=== PATIENT | female | born 1990 | race Caucasian/White ===

== ENCOUNTER 2018-10-13 13:50 | Emergency (ER) | payer BC, OTHER ==
--- NOTE | 2018-10-13 14:16 | PDOC ---
Attending Attestation - Resident Resident Name: Terri Olvera - ED Attending Attestation I have performed the following: I have examined & evaluated the patient, The case was reviewed & discussed with the resident, I agree w/resident's findings & plan, Exceptions are as noted - HPI HPI: 10/13/18 14:41 28yo female with cough and subjective fevers since monday. Seen at urgent care on and started on amoxicillin - which she took the first dose on monday and albuterol which she didn't use until today. Pt states lower anterior rib cp when she coughs. States some abd cramping, but no n/v/d. No sore throat. No rhinorrhea. States cough is productive of yellow sputum. No dysuria. No rashes. No other complaints. Pt did not check her temp this AM, but states she felt hot. 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 No other complaints. - Physicial Exam PE: 10/13/18 14:44 Gen: aaox3, nad heent: posterior pharynx clear, no rhinorrhea, supple neck, no LAD heart: +s1s2 reg lungs: cta b/l abd: soft, nt/nd +bs ext: no c/c/e - Medical Decision Making 10/13/18 14:15 I, Dr. Padmini Jerome, DO, attest that this document has been prepared under my direction and personally reviewed by me in its entirety. I further attest, that it accurately reflects all work, treatment, procedures and medical decision -making performed by me. 10/13/18 14:44 a/p: 28yo female with a cough x 4 days -will repeat cxr -flu swab was negative at Urgent Care -pt is nontoxic in appearance -no abd ttp -no fever in the ED -will give motrin -will rx a space chamber for her albuterol pump as pt expressed difficulty in timing with breathing and the pump 10/13/18 15:18 pt ambulatory in the ED with a steady gait 10/13/18 15:56 cxr clear pt ambulatory in the ED without difficulty
--- NOTE | 2018-10-13 14:21 | PDOC ---
History of Present Illness - History of Present Illness Initial Comments: 10/13/18 14:10 28 year old with no past medical history presents with nonproductive cough ongoing for 1 week. She went to urgent care 4 days ago where they gave her amoxicillin for bronchitis and albuterol neb which she started today. At urgent care the patient had a cxr that was negative and flu swab that was negative. <Terri Olvera - Last Filed: 10/13/18 16:06> <Padmini Jerome - Last Filed: 10/13/18 16:29> - General Chief Complaint: Cold Symptoms Stated Complaint: COUGH Time Seen by Provider: 10/13/18 14:01 Past History - Suicide/Smoking/Psychosocial Hx Smoking Status: Yes Smoking History: Current every day smoker Number of Cigarettes Smoked Daily: 10 <Terri Olvera - Last Filed: 10/13/18 16:06> <Padmini Jerome - Last Filed: 10/13/18 16:29> - Past Medical History Allergies/Adverse Reactions: Allergies Allergy/AdvReac Type Severity Reaction Status Date / Time No Known Allergies Allergy Verified 10/13/18 13:50 Home Medications: Ambulatory Orders Inhaler, Assist Devices [Space Chamber Plus] 1 each MC ONCE #1 spacer 10/13/18 Norethindrone-E.estradiol-Iron [Junel Fe 1 mg-20 Mcg Tablet] 1 each PO DAILY *Physical Exam - Vital Signs Last Vital Signs Temp Pulse Resp BP Pulse Ox 98.7 F 101 H 20 143/88 98 10/13/18 13:50 10/13/18 13:50 10/13/18 13:50 10/13/18 13:50 10/13/18 13:50 <Padmini Jerome - Last Filed: 10/13/18 16:29> Moderate Sedation - Procedure Monitoring Vital Signs: Procedure Monitoring Vital Signs Temperature 98.7 F 10/13/18 13:50 Pulse Rate 101 H 10/13/18 13:50 Respiratory Rate 20 10/13/18 13:50 Blood Pressure 143/88 10/13/18 13:50 O2 Sat by Pulse Oximetry (%) 98 10/13/18 13:50 <Padmini Jerome - Last Filed: 10/13/18 16:29> ED Treatment Course - ADDITIONAL ORDERS Additional order review: Laboratory Results 10/13/18 14:56 Urine HCG, Qual Negative - Medications Given in the ED: ED Medications Discontinued Medications Generic Name Dose Route Start Last Admin Trade Name Perez PRN Reason Stop Dose Admin Ibuprofen 600 mg 10/13/18 14:46 10/13/18 15:53 Motrin - PO 10/13/18 14:47 600 mg ONCE ONE Administration <Padmini Jerome - Last Filed: 10/13/18 16:29> Medical Decision Making - Medical Decision Making 10/13/18 16:00 consider bronchitis vs pna cxr: unremarkable stable for discharge 10/13/18 16:06 99 on RA, 106/78, hr 75 <Terri Olvera - Last Filed: 10/13/18 16:06> *DC/Admit/Observation/Transfer - Discharge Dispostion Decision to Admit order: No <Terri Olvera - Last Filed: 10/13/18 16:06> <Padmini Jerome - Last Filed: 10/13/18 16:29> Diagnosis at time of Disposition: URI (upper respiratory infection) - Discharge Dispostion Disposition: HOME Condition at time of disposition: Stable - Prescriptions Prescriptions: Inhaler, Assist Devices [Space Chamber Plus] 1 each MC ONCE #1 spacer - Patient Instructions Printed Discharge Instructions: DI for Cough -- Adult Additional Instructions: You were seen in the ED for complaints of cough. In the ED you were evaluated with imaging. Your results were unremarkable. There does not appear to be an acute need for immediate hospitalization. You are advised to follow up with your Primary Care Physician within 1 week. Your albuterol spacer for your inhaler was sent to your pharmacy. Return to the ED immediately if you experience worsening cough, coughing blood, chest pain, severe shortness of breath, fever, lightheadedness or palpitations.
[2018-10-13 14:28] VITALS: BP 143/88; PULSE 101; TEMP 98.7; BMI 21.8
[2018-10-13] MEDS ORDERED: IBUPROFEN 600 MG TABLET (FP) PO ONE ×2 (14:46→15:51)
[2018-10-13] MEDS ORDERED: ALBUTEROL SO4 2.5/IPRATROPIUM 0.5 INH SOL 3 ML VIAL.NEB. NEB ONE (14:54)
== END 2018-10-13 16:29 | disposition home or self-care (01) ==
LOC: FER 13:50
DX: J06.9 Acute upper respiratory infection, unspecified (principal); F17.210 Nicotine dependence, cigarettes, uncomplicated
CPT/HCPCS: 71046-TC-FY; 84703; 99281-25

== ENCOUNTER 2022-07-12 20:35 | Emergency (ER) | payer BC, OTHER ==
[2022-07-12 20:44] VITALS: BP 124/77; TEMP 99; BMI 24.5
[2022-07-12] MEDS ORDERED: ACETAMINOPHEN 500 MG TABLET (FP) PO ONE (20:58)
[2022-07-12] MEDS ORDERED: ACETAMINOPHEN 325 MG TABLET (FP) ONE (21:27)
[2022-07-12 21:46] LABS: BASO % 0.6 % (0-2.0); EOS % 0.3 % (0-4.5); HEMOGLOBIN 13.6 GM/dL (10.7-15.3); LYMPH % 12.7 % (8-40); MCH 31.7 pg (25.7-33.7); MCHC 34.1 g/dl (32.0-36.0); MEAN CELL VOLUME 93.1 fl (80-96); MEAN PLT VOLUME 7.3 fl (7.5-11.1); MONO % 5.1 % (3.8-10.2); NEUT % 81.3 % (42.8-82.8); PLATELET COUNT 316 10^3/uL (134-434); RDW 12.7 % (11.6-15.6); WHITE BLOOD COUNT 9.2 K/mm3 (4.0-10.0)
[2022-07-12 21:59] LABS: INR 1.1 (0.83-1.09); PROTHROMBIN TIME (PATIENT) 12.7 SEC (9.7-13.0)
[2022-07-12 22:01] LABS: CHLORIDE 103 mmol/L (98-107); SODIUM 136 mmol/L (136-145)
[2022-07-12 22:02] LABS: ACTIVATED PTT 29.6 SECONDS (25.2-36.5)
[2022-07-12 22:04] LABS: CALCIUM 9.5 mg/dL (8.5-10.1)
[2022-07-12 22:05] LABS: ALBUMIN 4.3 g/dl (3.4-5.0); ANION GAP 9 MMOL/L (8-16); BLOOD UREA NITROGEN 10.7 mg/dL (7-18); CO2 25 mmol/L (21-32); GLUCOSE,RANDOM 118 mg/dL (74-106); MAGNESIUM 2.4 mg/dL (1.8-2.4)
[2022-07-12 22:08] LABS: CREATININE 0.7 mg/dL (0.55-1.3); SGOT/AST 9 U/L (15-37); SGPT/ALT 18 U/L (13-61)
[2022-07-12 22:10] LABS: BILIRUBIN,TOTAL 0.4 mg/dL (0.2-1); TOT PROT 7.5 g/dl (6.4-8.2)
[2022-07-12 22:11] LABS: ALK PHOS 56 U/L (45-117)
[2022-07-12 22:46] VITALS: PULSE 89; RESP 18
== END 2022-07-12 23:08 | disposition home or self-care (01) ==
LOC: JER 20:35
DX: R05.9 Cough, unspecified (principal)
CPT/HCPCS: 0241U-QW; 36415; 71046-TC-FY; 80053; 83735; 84484; 85025; 85379; 85610; 85730; 93005; 93010; 99285-25